=== PATIENT | male | born 1980 | race Caucasian/White ===

== ENCOUNTER 2016-11-22 11:26 | Emergency (ER) | payer BC, MEDICAID ==
--- NOTE | 2016-11-22 12:41 | ERNOTE ---
Abdominal HPI - General Chief Complaint: Rectal Bleeding Time Seen by Provider: 11/22/16 12:25 Source: patient Exam Limitations: no limitations - Immun/Allergies/Home Medications Immunizatons: IMMUNIZATION HX Immunizations Up to Date Yes Allergies/Adverse Reactions: Allergies oxycodone [From OxyContin] Allergy (Verified 11/22/16 11:42) Home Medications: HOME MEDICATIONS Insulin Glargine,Hum.rec.anlog [Lantus] 24 unit SQ HS 09/03/13 [Last Taken 10/11] HYDROcodone/ACETAMINOPHEN [Lortab 5-325 mg Tablet] 1 each PO Q6H PRN 09/30/14 [ Last Taken 10/12/16] Diazepam [Valium] 10 mg PO HS 11/22/16 [Last Taken Unknown] - History of Present Illness Narrative: Patient is here for rectal bleeding that started yesterday morning. He had two large bowel movements mixed with blood. This morning he had one large bloody bowel movement and lost control of some of it, no BM since, no abdominal pain, no rectal pain. He vomited once yesterday morning with the first bowel movement , has been tolerating fluids since. He has a history of opiod induce constipation. He has chronic back pain. When he lived in [place] the pain was controlled with smoking pot. Since coming back to [place] the beginning of the year he has been back on vicodin prescribed by his PCP Review of Systems - Review of Systems Constitutional: Present: chills. Absent: recent illness, fever ENT: Absent: nose congestion, sore throat Respiratory: Absent: shortness of breath, cough Cardiology: Absent: chest pain Gastrointestinal/Abdominal: Present: See HPI Genitourinary: Present: no symptoms reported Musculoskeletal: Present: back pain - chronic Neurological: Absent: headache, dizziness/light-headedness - Patient's Past Medical History Patient History - Medical: Diabetes Type 2 Insulin Dependent, GERD, Hypothyroidism Patient History - Cardiac/Respiratory: No pertinent hx Patient History - Cancer: No Hx of Cancer Patient History - Surgical Procedures: Amputation, Appendectomy, Colonoscopy, T & A Patient History - Other: None - Family History Grandfather-Paternal Family History - Medical: Grandfather-Maternal Family History - Medical: Diabetes Type 2 - Social History Living Situations: spouse Abuse History: No History of abuse Psych History: Hx of Depression Smoking Status: Former smoker Alcohol Use: occasionally Drug Use: marijuana - Immunizations Immunizations Up to Date: Yes Physical Exam - Physical Exam General Appearance: Present: wd/wn, alert, no apparent distress Ears, Nose, Throat: Present: normal pharynx Respiratory: Present: no respiratory distress, normal breath sounds, no accessory muscle use, lungs clear Cardiovascular/Chest: Present: regular rate, rhythm, no murmur Gastrointestinal/Abdominal: Present: normal bowel sounds, nontender, nondistended, soft, no organomegaly Rectal Exam: Present: nontender, normal rectal tone, normal prostate, other - anoscope: empty rectal vault, no blood, no stool, no tendernes, no hemorrhoids. Absent: blood-streaked stool Extremity Exam: Present: no edema Neurological Exam: Present: alert, oriented, normal mood/affect ED Progress - Results and Orders Patient's Lab Results:: I have reviewed the patient's lab results. - Vital Signs Patient's Vital Signs:: I have reviewed the patient's vital signs. Vital Signs: Vital Signs 11/22/16 11/22/16 11/22/16 11:36 11:56 11:57 Temperature 36.4 C L Pulse Rate 76 71 70 Respiratory 16 10 L Rate Blood Pressure 122/73 127/71 O2 Sat by Pulse 98 98 Oximetry - X-Ray X-Ray #1 X-Ray: abdomen - no acute Interpretation: Reviewed by me - Progress/Reassessment Chief Complaint: Rectal Bleeding Progress Note-Subjective: 11/22/16 13:42 patient comfortable, discussed results, no bleeding Departure - Departure Clinical Impression: GI bleeding Qualifiers: GI bleed type/associated pathology: anorectal hemorrhage Qualified Code(s): K62.5 - Hemorrhage of anus and rectum Disposition: Home self-care Condition: Good Instructions: Gastrointestinal Bleeding, [id number] Additional Instructions: as you have no bleeding currently you are safe to go home, call your doctor for follow up Referrals: Cheo Beltran MD [Primary Care Provider] -
[2016-11-22 12:57] LABS: Hematocrit 39.5 % (42.0-52.0); Hemoglobin 14.1 gm/dL (13.5-18.0); Mean Cell Volume 84.9 fl (78-100); Mean Corpuscular Hemoglobin 30.3 pg (27-31); Mean Corpuscular Hgb Conc 35.7 g/dl (32-36); Mean Platelet Volume 9.3 fl (6.0-9.5); Neutrophil # 6.8 K/mm3 (1.3-6.0); Neutrophil % 71.9 % (42-75.0); Platelet Count 205 K/mm3 (150-450); Red Blood Count 4.65 M/mm3 (4.7-6.0); Red Cell Distribution Width 11.9 % (11.5-14.0); White Blood Count 9.4 K/mm3 (4.0-10.5)
[2016-11-22 13:53] VITALS: BP 132/78
== END 2016-11-22 13:50 | disposition home or self-care (01) ==
LOC: ER 11:26
DX: K62.5 Hemorrhage of anus and rectum (principal); Z87.891 Personal history of nicotine dependence

== ENCOUNTER 2018-07-26 08:29 | Inpatient (IN) ==
[~2018-07-26 08:29] MED LIST: ceFAZolin SODIUM 1 GM VIAL IV PRN
[2018-07-26] MEDS ORDERED: MORPHINE SULFATE 4 MG/ML SYRG IV ONE (08:42)
--- NOTE | 2018-07-26 08:48 | ERNOTE ---
Trauma/Assault HPI - General Stated Complaint: fall Time Seen by Provider: 07/26/18 08:30 Source: patient Exam Limitations: no limitations - Immun/Allergies/Home Medications Immunizations: IMMUNIZATION HX Immunizations Up to Date Yes History of Influenza Vaccine No Hx Pneumococcal Vaccination No Allergies/Adverse Reactions: Allergies No Known Allergies Allergy (Unverified 07/26/18 11:38) Home Medications: HOME MEDICATIONS nabumetone 750 mg tablet 750 mg PO DAILY 04/02/18 [Last Taken Unknown] omega-3 fatty acids 1,000 mg capsule 1,000 mg PO DAILY 04/02/18 [Last Taken Unknown] Baclofen 10 mg PO HS 07/26/18 [Last Taken Unknown] Escitalopram Oxalate [Lexapro] 60 mg PO DAILY 07/26/18 [Last Taken Unknown] oxyCODONE HCL/ACETAMINOPHEN [Endocet 10-325 mg Tablet] 2 ea PO TID PRN 07/26/18 [Last Taken Unknown] - History of Present Illness Date (Duration): 07/26/18 Narrative: Patient was diagnosed with MS two years ago, his main symptom is a left foot drop. He was walking to the bathroom [employer] when he lost his balance and fell on his left side. He has severe pain in his left hip and was unable to get up. He might have hit his head but denies any loss of consciousness, has had some pain in his left elbow before, worse since falling. He is also a diabetic (diet controlled) Location Occurred: Reports: home Pain Location: Reports: upper extremity, lower extremity Method of Injury: Reports: fall Severity: moderate - rest, severe - movement Modifying Factors - (Improves): Reports: rest Modifying Factors - (Worsens): Reports: movement Loss of Consciousness: Reports: no loss of consciousness, remembers the event Associated Symptoms - Trauma: Denies: headache, confusion, abdominal pain, nausea Review of Systems - Review of Systems Constitutional: Absent: recent illness ENT: Absent: nose congestion, sore throat Respiratory: Absent: shortness of breath Cardiology: Absent: chest pain Gastrointestinal/Abdominal: Absent: nausea, abdominal pain Genitourinary: Present: no symptoms reported Musculoskeletal: Present: back pain - chronic, no new pain Neurological: Absent: headache Medical History (Last Reviewed 07/26/18 @ 08:47 by Swetha Lemus MD) Ankle pain, left B12 deficiency Depression Diabetes mellitus, type II Diabetic neuropathy Hiatal hernia Hypothyroidism Hypothyroidism Low back pain Multiple sclerosis Onychomycosis Phantom pain Surgical History: Surgical History (Last Reviewed 07/26/18 @ 08:47 by Swetha Lemus MD) Toe amputation status Onset Date: ~04/02/18 09/04/13, 01/2016 R 4th toe, left great toe partial Family History: Family History (Last Reviewed 07/26/18 @ 12:08 by Jerman Adhikari CRNA) Mother Alive and well Father Alive and well Social History: Preferred Language Latvian Do you have any gnosticist or No cultural preference? Smoking Status Never smoker Abuse History No History of abuse Psych History Hx of Depression Alcohol Use none Drug Use none,marijuana (Last Updated 04/03/18 @ 13:29 by Olena Ellis DPM) No Social History Section defined Detailed Trauma Exam Best Eye Response (Jose Alberto): (4) open spontaneously Best Verbal Response (Jose Alberto): (5) oriented Best Motor Response ([place]): (6) obeys commands [place] Total: 15 General Appearance: Present: alert, mild distress Head Injury: Present: normal inspection, no tenderness on palpate Neurological Exam: Present: alert, oriented x 4, no motor/sensory deficits Neck Exam: Present: non-tender, full range of motion, normal alignment, normal inspection Nexus Clearance: Present: Nexus criteria negative Eye Exam: Normal inspection: bilateral, PERRL: bilateral Chest/Respiratory Exam: Present: nml inspection, chest non-tender, breath sounds nml. Absent: rib tenderness Cardiovascular Exam: Present: regular rate, rhythm, no murmur, normal peripheral pulses Peripheral Pulses: Dorsalis-pedis (R): Normal, Dorsalis-pedis (L): Normal Back Exam: Present: normal inspection, no CVA tenderness, no vertebral tenderness Abdominal Exam: Present: soft, non-tender, no distention, normal bowel sounds Skin Exam: Present: normal color, warm/dry RU Extremity: Present: normal inspection, normal range of motion, non-tender, no edema FANY Extremity: Present: normal inspection, no edema, normal except - - mild tenderness over elbow, no deformity RL Extremity: Present: normal inspection, normal range of motion, non-tender, no edema LL Extremity: Present: normal inspection, other - eft leg shortened and externally rotated, pain on palpation of left hip, normal exam of remainder of leg, did not attempt ROM due to hip exam - C-Spine cleared by: Neg history & exam - T, L-Spine cleared by: Neg hx and exam Progress - Results and Orders Patient's Lab Results:: I have reviewed the patient's lab results. - Vital Signs Patient's Vital Signs:: I have reviewed the patient's vital signs. Vital Signs: Vital Signs 07/26/18 08:32 Temperature 36.8 C Pulse Rate 65 Respiratory Rate 17 Blood Pressure 132/69 O2 Sat by Pulse Oximetry 100 - EKG EKG #1 EKG: NSR, no ST T wave changes, other - no acute change EKG read: Interp. by me - X-Ray X-Ray #1 X-Ray: chest - no acute cardiovascular changes, rib irregularity (no clinical tenderness) Interpretation: Reviewed by me X-Ray #2 X-Ray: elbow - no bony injury Interpretation: Reviewed by me X-Ray #3 X-Ray: hip - Comminuted mildly angulated intertrochanteric/subtrochanteric fracture of the proximal left femur. Interpretation: Reviewed by me - Progress/Reassessment Chief Complaint: Fall Progress Note-Subjective: 07/26/18 09:[address] De La Cruz, keep patient NPO, planing on doing surgery later today admit to med 07/26/18 09:36 discussed diagnosis and plan with patient and family 07/26/18 09:37 discussed with sal Johnston to admit Departure Clinical Impression: Closed left hip fracture Qualifiers: Encounter type: initial encounter Qualified Code(s): S72.002A - Fracture of unspecified part of neck of left femur, initial encounter for closed fracture Diabetes Qualifiers: Diabetes mellitus type: type 2 Diabetes mellitus technician terminal and repeater insulin use: without technician terminal and repeater use Diabetes mellitus complication status: without complication Qualified Code(s): E11.9 - Type 2 diabetes mellitus without complications Chronic pain Qualifiers: Chronic pain type: other chronic pain Qualified Code(s): G89.29 - Other chronic pain - Departure Disposition: Still a patient Condition: Stable Critical Care Time - Critical Care Critical Time Spent:: No
[2018-07-26] MEDS ORDERED: HYDROmorphone HCL 1 MG/ML DISP.SYRIN IV ONE (09:36)
[2018-07-26 09:49] LABS: Hematocrit 39.6 % (42.0-52.0); Hemoglobin 13.4 gm/dL (13.5-18.0); Mean Cell Volume 88.2 fl (78-100); Mean Corpuscular Hemoglobin 29.8 pg (27-31); Mean Corpuscular Hgb Conc 33.8 g/dl (32-36); Mean Platelet Volume 9.7 fl (8-11.3); Neutrophil # 10.7 K/mm3 (1.3-6.0); Neutrophil % 86.2 % (42-75.0); Platelet Count 206 K/mm3 (150-450); Red Blood Count 4.49 M/mm3 (4.7-6.0); Red Cell Distribution Width 11.7 % (11.5-14.0); White Blood Count 12.4 K/mm3 (4.0-10.5)
[2018-07-26 09:58] LABS: Albumin * 3.6 gm/dl (3.4-5.0); Anion Gap 9.2 mmol/L (6.8-13.8); Bilirubin, Total 1.3 mg/dL (0.0-1.1); Ca. Corrected For Albumin 8.7 mg/dL (8.4-10.2); Calcium * 8.7 mg/dL (7.9-10.9); Carbon Dioxide 31.8 mmol/L (24-32.6); Total Protein 6.6 gm/dL (6.2-8.2)
[2018-07-26 10:08] LABS: Hemoglobin A1C 5.7 % (4.00-6.0)
[2018-07-26] MEDS ORDERED: ONDANSETRON HCL/PF 2 MG/ML VIAL IV PRN ×2 (10:20→20:56)
[2018-07-26] MEDS ORDERED: NORMAL SALINE 1,000 ML IV ONE (10:23)
--- NOTE | 2018-07-26 11:13 | HP ---
Chief Complaint - Chief Complaint Date of Service: 07/26/18 Time of Service: 11:13 Chief Complaint: hip fracture History of Present Illness: Patient with PMHx of MS suffered a ground level fall at home this morning, and sustained a left hip fracture. He gets twice yearly infusions for his MS, and is on chronic narcotics for MS related pain. He walks with a cane. He reports previous history of diabetes, but was 100 pounds larger at that time. Has had toe amputations due to his diabetes. Today's A1C was 5.7. He denies symptoms of active infection. No sinus pressure, sore throat, SOB, CP, cough, dysuria, or skin ulcers. Medical History (Last Reviewed 07/26/18 @ 10:43 by Cira Pickett RN) Ankle pain, left B12 deficiency Depression Diabetes mellitus, type II Diabetic neuropathy Hiatal hernia Hypothyroidism Hypothyroidism Low back pain Multiple sclerosis Onychomycosis Phantom pain Surgical History: Surgical History (Last Reviewed 07/26/18 @ 10:42 by Cira Pickett RN) Toe amputation status Onset Date: ~04/02/18 09/04/13, 01/2016 R 4th toe, left great toe partial Family History: Family History (Last Reviewed 07/26/18 @ 10:43 by Cira Pickett RN) Mother Alive and well Father Alive and well Social History: Preferred Language Thai Do you have any hinduism or No cultural preference? Smoking Status Never smoker Abuse History No History of abuse Psych History Hx of Depression Alcohol Use none Drug Use none,marijuana (Last Updated 04/03/18 @ 13:29 by Olena Ellis DPM) No Social History Section defined Review Of Systems (GEN) - Review of Systems Generalized/Overall Review: Absent: Fever Respiratory: Absent: Cough Cardiac: Absent: Chest Pain, Edema Abdominal: Absent: Vomiting, Diarrhea Genitourinary: Absent: Dysuria Skin: Absent: Lesions Immunizations: IMMUNIZATION HX Immunizations Up to Date Yes History of Influenza Vaccine No Hx Pneumococcal Vaccination No Allergies/Adverse Reactions: Allergies Allergy/AdvReac Type Severity Reaction Status Date / Time No Known Allergies Allergy Unverified 07/26/18 11:38 Home Medications: HOME MEDICATIONS nabumetone 750 mg tablet 750 mg PO DAILY 04/02/18 [Last Taken Unknown] omega-3 fatty acids 1,000 mg capsule 1,000 mg PO DAILY 04/02/18 [Last Taken Unknown] Baclofen 10 mg PO HS 07/26/18 [Last Taken Unknown] Escitalopram Oxalate [Lexapro] 60 mg PO DAILY 07/26/18 [Last Taken Unknown] oxyCODONE HCL/ACETAMINOPHEN [Endocet 10-325 mg Tablet] 2 ea PO TID PRN 07/26/18 [Last Taken Unknown] Exam - Exam Vital Signs: Vital Signs - Last Taken Temp 36.8 C 07/26/18 10:40 Pulse 66 07/26/18 10:40 Resp 15 07/26/18 10:40 BP 121/74 07/26/18 10:40 Pulse Ox 98 07/26/18 10:40 Constitutional: Present: Alert, Oriented x3, Cooperative, Well developed Respiratory: Present: lungs clear, normal breath sounds, no respiratory distress Cardiovascular/Chest: Present: regular rate, rhythm Abdomen: Present: soft, nontender Extremity: Present: other - left leg rotated laterally. Absent: lower extremity edema Eye contact: Present: cooperative Diagnostic Studies: Abnormal Lab Results 07/26/18 07/26/18 Range/Units 09:41 09:41 WBC 12.4 H (4.0-10.5) K/mm3 RBC 4.49 L (4.7-6.0) M/mm3 Hgb 13.4 L (13.5-18.0) gm/dL Hct 39.6 L (42.0-52.0) % Immature Gran # (Auto) 0.05 H (0.000-0.0310) K/mm3 Neutrophils % 86.2 H (42-75.0) % Lymphocytes % 8.0 L (20-51) % Neutrophils # 10.7 H (1.3-6.0) K/mm3 Lymphocytes # 0.99 L (1.5-3.5) k/mm3 Random Glucose 127 H (70-110) mg/dL Total Bilirubin 1.3 H (0.0-1.1) mg/dL Laboratory Results WBC 12.4 K/mm3 (4.0-10.5) H 07/26/18 09:41 RBC 4.49 M/mm3 (4.7-6.0) L 07/26/18 09:41 Hgb 13.4 gm/dL (13.5-18.0) L 07/26/18 09:41 Hct 39.6 % (42.0-52.0) L 07/26/18 09:41 MCV 88.2 fl (78-100) 07/26/18 09:41 MCH 29.8 pg (27-31) 07/26/18 09:41 MCHC 33.8 g/dl (32-36) 07/26/18 09:41 RDW 11.7 % (11.5-14.0) 07/26/18 09:41 Plt Count 206 K/mm3 (150-450) 07/26/18 09:41 MPV 9.7 fl (8-11.3) 07/26/18 09:41 Immature Gran % (Auto) 0.40 % (0.001-0.429) 07/26/18 09:41 Immature Gran # (Auto) 0.05 K/mm3 (0.000-0.0310) H 07/26/18 09:41 Neutrophils % 86.2 % (42-75.0) H 07/26/18 09:41 Lymphocytes % 8.0 % (20-51) L 07/26/18 09:41 Monocytes % 5.1 % (0.0-9) 07/26/18 09:41 Eosinophils % 0.0 % (0.0-3.0) 07/26/18 09:41 Basophils % 0.3 % (0.0-1.0) 07/26/18 09:41 Nucleated RBC % 0.0 k/mm3 (0-1) 07/26/18 09:41 Neutrophils # 10.7 K/mm3 (1.3-6.0) H 07/26/18 09:41 Lymphocytes # 0.99 k/mm3 (1.5-3.5) L 07/26/18 09:41 Monocytes # 0.6 k/mm3 (0.0-1.0) 07/26/18 09:41 Eosinophils # 0.0 k/mm3 (0.0-0.7) 07/26/18 09:41 Absolute Basophils 0.0 k/mm3 (0.0-0.1) 07/26/18 09:41 Sodium 139 mmol/L (132-142) 07/26/18 09:41 Plasma Sodium 139 mmol/L (130-142) 07/26/18 09:41 Potassium 4.0 mmol/L (3.4-4.6) 07/26/18 09:41 Chloride 102 mmol/L (97-106) 07/26/18 09:41 Carbon Dioxide 31.8 mmol/L (24-32.6) 07/26/18 09:41 Anion Gap 9.2 mmol/L (6.8-13.8) 07/26/18 09:41 BUN 16 mg/dL (6-23) 07/26/18 09:41 Creatinine 0.89 mg/dL (0.4-1.4) 07/26/18 09:41 Est GFR (Non-Af Amer) 101 mL/min (60-130) 07/26/18 09:41 BUN/Creatinine Ratio 18.0 (9.0-21.6) 07/26/18 09:41 Random Glucose 127 mg/dL (70-110) H 07/26/18 09:41 Mean Blood Glucose 104 mg/dL 07/26/18 09:49 Hemoglobin A1c 5.7 % (4.00-6.0) 07/26/18 09:49 Calcium 8.7 mg/dL (7.9-10.9) 07/26/18 09:41 Calcium Adj for Albumin 8.7 mg/dL (8.4-10.2) 07/26/18 09:41 Total Bilirubin 1.3 mg/dL (0.0-1.1) H 07/26/18 09:41 AST 17 U/L (0-48) 07/26/18 09:41 ALT 20 U/L (19-67) 07/26/18 09:41 Alkaline Phosphatase 90 U/L (50-170) 07/26/18 09:41 Total Protein 6.6 gm/dL (6.2-8.2) 07/26/18 09:41 Albumin 3.6 gm/dl (3.4-5.0) 07/26/18 09:41 Assessment/Plan - Assessment/Plan (1) Closed left hip fracture Assessment: Xray reads "Comminuted mildly angulated intertrochanteric/subtrochanteric fracture of the proximal left femur." He is prescribed vicodin for MS related pain and will defer pain management to his surgeon. Potential repair later today. He has no increased CV risk to undergo surgery, and he is low risk. No significant abnormalities on labs or his EKG, and no signs of infection on exam. OK to proceed. He denies significant steroid use history. Would consider checking a Dexa after DC to evaluate his bone density. Problem: Acute Qualifiers: Encounter type: initial encounter Qualified Code(s): S72.002A - Fracture of unspecified part of neck of left femur, initial encounter for closed fracture (2) Multiple sclerosis Assessment: He reports being due for his twice yearly infusion, and would recommend scheduling that after DC. Will need to monitor for MS flare, given his acute stress from his hip fracture. He reports having increased difficulty walking with his flares. If he were to have an acute flare, will need to contact his neurologist for treatment recommendations. Problem: Chronic (3) Chronic pain Assessment: He takes vicodin at baseline, so pain control may be difficult. Will attempt to resume this dose after his surgery, but likely will need increased narcotics. Problem: Chronic Qualifiers: Chronic pain type: other chronic pain Qualified Code(s): G89.29 - Other chronic pain
[2018-07-26] MEDS: HYDROmorphone HCL 1 MG/ML DISP.SYRIN IV PRN ×2 (11:48→18:26)
--- NOTE | 2018-07-26 12:10 | ANES ---
Anesthesia Pre Procedure Eval Vitals/Labs: Last Vital Signs Temp 37.1 C 07/26/18 10:42 Pulse 64 07/26/18 10:42 Resp 16 07/26/18 10:42 BP 129/69 07/26/18 10:42 Pulse Ox 99 07/26/18 10:42 Hemoglobin A1c 5.7 % (4.00-6.0) 07/26/18 09:49 HOME MEDICATIONS nabumetone 750 mg tablet 750 mg PO DAILY 04/02/18 [Last Taken Unknown] omega-3 fatty acids 1,000 mg capsule 1,000 mg PO DAILY 04/02/18 [Last Taken Unknown] Baclofen 10 mg PO HS 07/26/18 [Last Taken Unknown] Escitalopram Oxalate [Lexapro] 60 mg PO DAILY 07/26/18 [Last Taken Unknown] oxyCODONE HCL/ACETAMINOPHEN [Endocet 10-325 mg Tablet] 2 ea PO TID PRN 07/26/18 [Last Taken Unknown] Allergies/Adverse Reactions: Allergies Allergy/AdvReac Type Severity Reaction Status Date / Time No Known Allergies Allergy Unverified 07/26/18 11:38 - Planned Procedure Planned Procedure: Left Hip fracture Medication List Reviewed:: Yes Allergies Verified: Yes Medical History (Last Reviewed 07/26/18 @ 12:08 by Jerman Adhikari CRNA) Ankle pain, left B12 deficiency Depression Diabetes mellitus, type II Diabetic neuropathy Hiatal hernia Hypothyroidism Hypothyroidism Low back pain Multiple sclerosis Onychomycosis Phantom pain Surgical History (Last Reviewed 07/26/18 @ 12:08 by Jerman Adhikari CRNA) Toe amputation status Onset Date: ~04/02/18 09/04/13, 01/2016 R 4th toe, left great toe partial Family History (Last Reviewed 07/26/18 @ 12:08 by Jerman Adhikari CRNA) Mother Alive and well Father Alive and well - Family Anesthesia History Family History:: no untoward family reactions to anesthesia - Airway/Neck/Teeth Within Normal Limits:: Yes Denture Type: Partial lower Neck Exam: full range of motion Mallampatti Score: 1 Thyromental (T-M) distance: > 6 cm Mandibulo Hyoid distance: > 3 cm - Respiratory Respiratory Physical: lungs clear Sleep Apnea currently treated: No Sleep Apnea by current assessment: No - Cardiovascular Tolerate Activity: Good Heart Sounds: S1 & S2, Regular - Anesthesia Assessment and Plan ASA Class: PS, II Anesthesia Type Plan: General LMA - frequent marijuana use Planned difficult intubation/equipment available: No
--- NOTE | 2018-07-26 12:35 | CONS ---
- Reason for consultation (1) Closed left hip fracture Date of Service: 07/26/18 HPI - General Date of Service: 07/26/18 Narrative: Chris is a 38-year-old male with a history of multiple sclerosis and poorly controlled diabetes who fell from standing height today and sustained a displaced intertrochanteric fracture of his left femur. He was initially evaluated in the emergency department where plain films revealed the injury. He was then admitted to the floor under the medicine service and orthopedics was consulted for further evaluation and management of his hip fracture. Upon evaluation he complains only of left hip pain. He denies any other injuries. He denies hitting his head or any loss of consciousness. He states he has a history of chronic balance issues and has numerous falls because of his multiple sclerosis. - History of Present Illness Allergies/Adverse Reactions: Allergies No Known Allergies Allergy (Unverified 07/26/18 11:38) Home Medications: Home Medications Medication Instructions Recorded Last Taken nabumetone 750 mg tablet 750 mg PO DAILY 04/02/18 Unknown omega-3 fatty acids 1,000 mg 1,000 mg PO DAILY 04/02/18 Unknown capsule Baclofen 10 mg PO HS 07/26/18 Unknown Escitalopram Oxalate [Lexapro] 60 mg PO DAILY 07/26/18 Unknown oxyCODONE HCL/ACETAMINOPHEN 2 ea PO TID PRN 07/26/18 Unknown [Endocet 10-325 mg Tablet] Procedures Amputation of toe (10/01/14) Other excision, fusion and repair of toes (11/12/13) Other partial ostectomy, other bones (11/12/13) Revision of amputation stump (09/09/13) Medications - Medications Current Medications: Current Medications Hydromorphone HCl (Dilaudid) 1 mg IV Q4H PRN PRN Reason: Severe Pain (pain scale 7-10) Stop: 08/25/18 10:21 Last Admin: 07/26/18 11:48 Dose: 1 mg Documented by: Sodium Chloride (Sodium Chloride 0.9%) 1,000 mls @ 150 mls/hr IV .Q6H40M ONE Stop: 07/26/18 17:02 Last Admin: 07/26/18 10:50 Dose: 150 mls/hr Documented by: Review of Systems - Review of Systems Narrative: As per HPI, otherwise negative. Physical Examination - Exam Narrative: Gen: A&Ox3, NAD Resp: Breathing nonlabored on room air CV: Regular rate and rhythm MSK: LLE--> lower extremity shortened and externally rotated, pain with any attempted motion of the left lower extremity, left foot warm and well perfused with palpable DP and PT pulses, previous toe amputations noted Vital Signs: Vital Signs - Last Taken Temp 37.1 C 07/26/18 10:42 Pulse 64 07/26/18 10:42 Resp 16 07/26/18 10:42 BP 129/69 07/26/18 10:42 Pulse Ox 99 07/26/18 10:42 O2 Oxygen Delivery Method Room Air - Results and Findings: Narrative: 38-year-old male with multiple sclerosis and poorly controlled diabetes with displaced left intertrochanteric femur fracture. -Counseled the patient on treatment options today and given his age and fracture pattern, strongly recommended surgical fixation to allow him to quickly mobilize. I counseled him on the risks of surgery including, but not limited to, infection, bleeding, avascular necrosis, malunion/nonunion, persistent pain, stiffness, arthrosis, DVT/PE, and risks with anesthesia. After discussion, he wishes to proceed with surgery. -Informed consent obtained. -Patient nothing by mouth since this morning. -Plan for closed versus open reduction and short cephalo-medullary nailing this afternoon. -Continue medical comanagement by medicine team. Lab/Microbiology results last 24 hrs: Abnormal/Pending Laboratory Last 24 HRS 07/26/18 07/26/18 09:41 09:41 WBC 12.4 H RBC 4.49 L Hgb 13.4 L Hct 39.6 L Immature Gran # (Auto) 0.05 H Neutrophils % 86.2 H Lymphocytes % 8.0 L Neutrophils # 10.7 H Lymphocytes # 0.99 L Random Glucose 127 H Total Bilirubin 1.3 H - Assessments/Findings (1) Closed left hip fracture Problem: Acute Qualifiers: Encounter type: initial encounter Qualified Code(s): S72.002A - Fracture of unspecified part of neck of left femur, initial encounter for closed fracture
[2018-07-26] MEDS ORDERED: ceFAZolin SODIUM 2 GM in DEXTROSE 5 % IN WATER 50 ML IV PRN ×2 (13:10)
[2018-07-26] MEDS ORDERED: RINGER'S SOLUTION,LACTATED 1,000 ML IV ONE (13:42)
--- NOTE | 2018-07-26 14:14 | OR ---
Operative Report - Dictated Report Narrative: Date: 07/26/2018 Surgeon: Jeremy De La Cruz M.D. Admin Dir: Kd Alejandro PA-C Preoperative diagnosis: Left basicervical femoral neck fracture Postoperative diagnosis: Left basicervical femoral neck fracture Operations and procedures: 1. Closed reduction, cephalo-medullary fixation left basicervical femoral neck fracture 2. Intraoperative interpretation of radiographs Anesthesia: Gen. Specimens: None Estimated blood loss: 200 Milliliters Retained implants: [employer] Trigen InterTAN 130 degree size 11.5 mm by 18 centimeter nail with 105 millimeter lag screw and 100 millimeter compression screw, with distal locking screw Complications: None Indications for procedure: Dajuan is a 38-year-old male with multiple sclerosis and poorly controlled diabetes who injured the left leg after a fall from standing height at home. They were admitted to the hospital after being evaluated in the emergency department. Once the medical provider felt that they were stable for surgical treatment, the risks and benefits alternatives were discussed. The risks of , blood clots, bleeding, infection, nerve/tendon/blood vessel injury, malunion, nonunion, failure of implants, painful implants, arthrosis, and need for additional procedures were discussed. The extremity was marked and consent was obtained on the floor. Procedure: After marking the operative extremity on the floor, the patient was taken to the operating room. A timeout was performed. IV antibiotics consisting of 2 g of Ancef were administered. A spinal anesthetic was induced by anesthesia, and the patient was then placed onto a fracture table with a well-padded perineal post. The non-operative leg was placed in a well-padded well leg malcolm in lithotomy position with an SCD on the leg. The operative leg was placed in a well-padded traction boot. Longitudinal traction, internal rotation, flexion, and adduction were utilized in order to reduce the fracture. Preliminary images were attained utilizing C-arm in both the AP and lateral views. This confirmed that we had obtained adequate visualization of the fracture as well as reduction. Next the hip was then prepped and draped in a standard sterile fashion. Next, the guidewire was placed percutaneously proximal to the greater trochanter to margo a starting point at the tip of the greater trochanter centered on the lateral view. This was advanced down to the level below the lesser trochanter. A scalpel was utilized to dissect down to the greater trochanter in order to advance the soft tissue protector down to bone. The entry reamer was then advanced down the proximal femur to the level of the lesser trochanter. The above nail was then selected and impacted into place. The outrigger was utilized in order to confirm the appropriate depth of the nail. Using the alignment device on the outrigger, a kailyn incision was made over the lateral femur. Sharp dissection was carried through the iliotibial band down to the proximal femur. The guidewire was was placed into the femoral head in a center center position on AP and lateral views. A tip apex distance less than 25 mm combined was obtained. Once we felt that we had placed the guidewire in the appropriate position, it was measured. Next the compression screw entry drill was advanced through the lateral cortex. This was then drilled down to the appropriate depth for the compression screw, again confirming that we are within the confines the bone. The derotational bar was then placed and the lag screw was drilled to the appropriate depth. The lag screw was then secured in place ensuring that we were within the confines of the bone. The compression screw was then inserted allowing for compression while releasing the traction on the leg. Using C-arm this was visualized to allow for compression across the fracture site. Once it was felt we had adequately stabilized the intertrochanteric fracture, the distal interlocking screw was placed in a static position confirmed to be the appropriate length and within the nail on both AP and lateral views. The nail was secured allowing for controlled compression and the outrigger was removed. The wounds were then thoroughly irrigated. Final images were obtained. The hip was placed through range of motion and showed no crepitance. The deep fascia was closed with 0 Vicryl, the subcutaneous tissue with 3-0 Vicryl, and the skin was closed with domi. Sterile dressings of Xeroform, 4 x 4s, and tegaderm were applied. All sponge, sharp, and instrument counts were correct prior to closing the wounds. The patient was then awoken and transferred to the postanesthesia care unit in stable condition.
[2018-07-26] MEDS ORDERED: MAG HYDROX/ALUMINUM HYD/SIMETH 30 ML UDC PO PRN (14:16)
[2018-07-26] MEDS ORDERED: MAGNESIUM HYDROXIDE 30 ML UDC PO PRN (14:16)
[2018-07-26] MEDS ORDERED: ACETAMINOPHEN 500 MG TABLET PO PRN (14:16)
[2018-07-26] MEDS ORDERED: MORPHINE SULFATE 2 MG/ML DISP.SYRIN IV PRN (14:16)
[2018-07-26] MEDS ORDERED: oxyCODONE HCL/ACETAMINOPHEN 1 TAB TABLET PO PRN (14:16)
--- NOTE | 2018-07-26 14:29 | ANES ---
Post Anesthesia Discharge - Transfer of Care Transfer of Care handoff given to nurse: Yes - Discharge from PACU Discharge from PACU when meets criteria: Yes - Awake in PACU.
--- NOTE | 2018-07-26 14:52 | ANES ---
Post Anesthesia Assessment - Vital Signs Vitals: Last Vital Signs Temp 37.3 C 07/26/18 14:40 Pulse 87 07/26/18 14:40 Resp 18 07/26/18 14:40 BP 137/71 07/26/18 14:40 Pulse Ox 98 07/26/18 14:40 Airway Patency: Normal - Mental Status Level Of Consciousness: Awake, Alert, Appropriate - Pain Level Pain Score: 5 - N/V Assessment Nausea/Vomiting Presence: None Dehydration:: No
[2018-07-26] MEDS: NORMAL SALINE 1,000 ML IV PRN ×2 (15:05→22:48)
[2018-07-26] MEDS: oxyCODONE HCL/ACETAMINOPHEN 1 TAB TABLET PO PRN ×2 (16:41→20:45)
[2018-07-26] MEDS: ceFAZolin SODIUM 1 GM in DEXTROSE 5 % IN WATER 100 ML IV SCH ×2 (17:30)
[2018-07-26] MEDS ORDERED: ONDANSETRON HCL/PF 2 MG/ML VIAL IV ONE (20:54)
[2018-07-26] MEDS: BACLOFEN 10 MG TABLET PO SCH (21:11)
[2018-07-26] MEDS: SENNOSIDES/DOCUSATE SODIUM 1 TAB TABLET PO SCH (21:11)
[2018-07-27] MEDS: HYDROmorphone HCL 1 MG/ML DISP.SYRIN IV PRN ×3 (00:02→12:07)
[2018-07-27] MEDS: oxyCODONE HCL/ACETAMINOPHEN 1 TAB TABLET PO PRN ×5 (02:04→19:54)
[2018-07-27] MEDS: ceFAZolin SODIUM 1 GM in DEXTROSE 5 % IN WATER 100 ML IV SCH ×4 (02:10→09:44)
[2018-07-27 06:04] LABS: Hematocrit 30.8 % (42.0-52.0); Hemoglobin 10.6 gm/dL (13.5-18.0); Mean Corpuscular Hemoglobin 30.3 pg (27-31); Mean Corpuscular Hgb Conc 34.4 g/dl (32-36); Mean Platelet Volume 9.9 fl (8-11.3); Platelet Count 174 K/mm3 (150-450); Red Cell Distribution Width 11.9 % (11.5-14.0); White Blood Count 9.4 K/mm3 (4.0-10.5)
[2018-07-27 06:13] LABS: Anion Gap 9.4 mmol/L (6.8-13.8); Estimated Creat Clear 143.7; Potassium 3.4 mmol/L (3.4-4.6)
[2018-07-27] MEDS: ESCITALOPRAM OXALATE 10 MG TAB PO SCH (08:34)
--- NOTE | 2018-07-27 11:07 | PN ---
Subjective - Date and Time Seen Date: 07/27/18 Time: 10:53 Subjective Narrative: Patient is POD #1 left hip fracture repair. He had some nausea overnight, but was able to tolerate breakfast. He has not been up yet since his surgery. Has not yet had a bowel movement. He would prefer to use the dilaudid while he's here. Objective - Review of Systems Generalized/Overall Review: Denies: Fever Respiratory: Denies: Shortness of Breath Cardiac: Denies: Chest Pain, Edema Abdominal: Reports: Nausea. Denies: Diarrhea Genitourinary Symptoms: Reports: No Symptoms Reported Skin: Reports: No Symptoms Reported - Vitals Vitals: Last Vital Signs Temp 36.8 C 07/27/18 10:37 Pulse 75 07/27/18 10:37 Resp 12 07/27/18 10:37 BP 111/70 07/27/18 10:37 Pulse Ox 98 07/27/18 10:37 - Abnormal Lab Findings Abnormal Lab Findings: Abnormal Lab Results 07/27/18 07/27/18 Range/Units 06:02 06:02 RBC 3.50 L (4.7-6.0) M/mm3 Hgb 10.6 L (13.5-18.0) gm/dL Hct 30.8 L (42.0-52.0) % Random Glucose 130 H (70-110) mg/dL - Exam Constitutional: Present: Alert, Oriented x3, Cooperative, No distress, Young Respiratory: Present: normal breath sounds, no respiratory distress Cardiovascular/Chest: Present: regular rate, rhythm Abdomen: Present: Normal bowel sounds, soft, nontender Extremity: Present: other - dressings laterally over the hip incisions on the left. SCDs in place. Absent: lower extremity edema Eye contact: Present: cooperative Cauti Physician Documentation - Urinary Catheter Management Urethral (Lees) Date of Insertion: 07/26/18 Time of Insertion: 13:10 Date of Removal: 07/27/18 Time of Removal: 08:30 Assessment/Plan - Problems/Diagnosis (1) Closed left hip fracture Problem: Acute Qualifiers: Encounter type: initial encounter Qualified Code(s): S72.002A - Fracture of unspecified part of neck of left femur, initial encounter for closed fracture Narrative: POD #1 fracture repair. He has a history of MS with balance difficulties, and had a ground level fall resulting in the left hip fracture. He used 1 mg IV dilaudid overnight. Discussed the goals of transitioning to po meds for pain control as soon as he is able. PRN milk of magnesia and senna are ordered to avoid constipation. PT evaluation has been ordered. He'd prefer to go home after surgery, but there is a possibility he will require a short term stay at a facility for PT prior to going home. (2) Multiple sclerosis Problem: Chronic Narrative: Discussed his case with his neurologist yesterday, who does not anticipate an MS flare because he receives Acrevis infusions. However, if he were to flare, she believes he would have stroke-like symptoms, and recommends 1,000 mg solumedrol for at least 3 days. (3) Chronic pain Problem: Chronic Qualifiers: Chronic pain type: other chronic pain Qualified Code(s): G89.29 - Other chronic pain Narrative: He reports taking 2 tablets of 10-325 mg oxycodone/acetaminophen tid chronically, and will return to his home regimen as soon as he is able.
[2018-07-27] MEDS: ENOXAPARIN SODIUM 40 MG/0.4 ML SYRG SC SCH (13:53)
[2018-07-27] MEDS: HYDROmorphone HCL 2 MG TABLET PO PRN ×2 (17:56→22:52)
[2018-07-27] MEDS: SENNOSIDES/DOCUSATE SODIUM 1 TAB TABLET PO SCH (21:08)
[2018-07-27] MEDS: BACLOFEN 10 MG TABLET PO SCH (21:08)
[2018-07-28] MEDS: oxyCODONE HCL/ACETAMINOPHEN 1 TAB TABLET PO PRN ×5 (01:42→20:38)
[2018-07-28] MEDS: HYDROmorphone HCL 2 MG TABLET PO PRN (04:36)
[2018-07-28 06:11] LABS: Hematocrit 29.1 % (42.0-52.0); Hemoglobin 9.9 gm/dL (13.5-18.0); Mean Cell Volume 88.4 fl (78-100); Mean Corpuscular Hemoglobin 30.1 pg (27-31); Mean Platelet Volume 10.1 fl (8-11.3); Platelet Count 159 K/mm3 (150-450); Red Blood Count 3.29 M/mm3 (4.7-6.0); Red Cell Distribution Width 11.8 % (11.5-14.0)
[2018-07-28 06:22] LABS: Anion Gap 5.8 mmol/L (6.8-13.8); BUN/Creatinine Ratio 12.9 (9.0-21.6); Calcium * 8.5 mg/dL (7.9-10.9); Carbon Dioxide 28.7 mmol/L (24-32.6); Potassium 3.5 mmol/L (3.4-4.6)
[2018-07-28] MEDS: ESCITALOPRAM OXALATE 10 MG TAB PO SCH (08:32)
[2018-07-28] MEDS: ENOXAPARIN SODIUM 40 MG/0.4 ML SYRG SC SCH (13:43)
--- NOTE | 2018-07-28 14:07 | PN ---
Subjective - Date and Time Seen Date: 07/28/18 Time: 14:02 Subjective Narrative: Patient reports feeling well. He is able to walk with a walker to the bathroom. He has not yet had a bowel movement, but does not feel uncomfortable. He used 3 doses of Dilaudid overnight. Of note, he does not have prescription drug coverage. He will need long-acting pain medication and anticoagulation on DC. Objective - Review of Systems Generalized/Overall Review: Denies: Fever Respiratory: Denies: Cough, Shortness of Breath Cardiac: Denies: Chest Pain Abdominal: Denies: Nausea, Diarrhea Genitourinary Symptoms: Reports: No Symptoms Reported Musculoskeletal Complaints: Reports: Other - Left hip pain postop - Vitals Vitals: Last Vital Signs Temp 36.3 C 07/28/18 10:47 Pulse 89 07/28/18 10:47 Resp 14 07/28/18 10:47 BP 117/65 07/28/18 10:47 Pulse Ox 98 07/28/18 10:47 - Abnormal Lab Findings Abnormal Lab Findings: Abnormal Lab Results 07/28/18 07/28/18 Range/Units 05:30 05:30 RBC 3.29 L (4.7-6.0) M/mm3 Hgb 9.9 L (13.5-18.0) gm/dL Hct 29.1 L (42.0-52.0) % Anion Gap 5.8 L (6.8-13.8) mmol/L Est GFR (Non-Af Amer) 133 H (60-130) mL/min Random Glucose 145 H (70-110) mg/dL - Exam Constitutional: Present: Alert, Oriented x3, Cooperative, No distress Respiratory: Present: normal breath sounds, no respiratory distress Cardiovascular/Chest: Present: regular rate, rhythm Extremity: Absent: lower extremity edema Eye contact: Present: cooperative Cauti Physician Documentation - Urinary Catheter Management Urethral (Lees) Date of Insertion: 07/26/18 Time of Insertion: 13:10 Date of Removal: 07/27/18 Time of Removal: 08:30 Assessment/Plan - Problems/Diagnosis (1) Closed left hip fracture Problem: Acute Qualifiers: Encounter type: initial encounter Qualified Code(s): S72.002A - Fracture of unspecified part of neck of left femur, initial encounter for closed fracture Narrative: Postop day 2 surgical repair of left hip fracture after ground-level fall. He is able to ambulate with a walker, and will be able to go home after discharge. IV Dilaudid DC'd overnight, and will change from p.o. Dilaudid to p.o. OxyContin. We will keep him overnight to ensure that his pain is controlled with OxyContin and home dose of Percocet. He will also need 2 weeks of Coumadin or Lovenox for anticoagulation, followed by 6 weeks of 325 mg aspirin. He does not have prescription drug coverage. 2 weeks of Coumadin would cost him $60. He is to keep his wounds dry until his follow-up appointment [address] De La Cruz. Change dressings as needed with 4 x 4 gauze and tape or Tegaderm (2) Multiple sclerosis Problem: Chronic Narrative: He receives Acrevis infusions every 6 months. He has chronic pain and left foot drop due to his MS. He has multiple forms of equipment to help him get around his house. (3) Chronic pain Problem: Chronic Qualifiers: Chronic pain type: other chronic pain Qualified Code(s): G89.29 - Other chronic pain
[2018-07-28] MEDS: SENNOSIDES/DOCUSATE SODIUM 1 TAB TABLET PO SCH (20:39)
[2018-07-28] MEDS: BACLOFEN 10 MG TABLET PO SCH (20:39)
[2018-07-29] MEDS: oxyCODONE HCL/ACETAMINOPHEN 1 TAB TABLET PO PRN ×3 (03:48→12:52)
--- NOTE | 2018-07-29 08:58 | PN ---
Subjective - Date and Time Seen Date: 07/29/18 Time: 08:00 Subjective Narrative: Patient states he had no acute events over night. His pain is well controlled at this time. He is tolerating p.o. diet. He notes he previously had diabetes and had lost over 100 pounds that has helped him no longer require medications. He states his hip is minimally painful, he has been up and walked to the bathroom. He notes he has resources at home to ambulate as well as aid from family. He states he still has moderate pain with weightbearing of his left hip. Objective - Vitals Vitals: Last Vital Signs Temp 36.9 C 07/29/18 06:51 Pulse 77 07/29/18 06:51 Resp 18 07/29/18 06:51 BP 118/69 07/29/18 06:51 Pulse Ox 97 07/29/18 06:51 - Exam Constitutional: Present: Alert, Cooperative, No distress Extremity: Present: other - LLE--> bandages clean, dry, intact, sensation intact light touch, distal pulses present, significant vascular changes distally, multiple toe amputations, mild tenderness diffusely around his left hip Eye contact: Present: cooperative Cauti Physician Documentation - Urinary Catheter Management Urethral (Lees) Date of Insertion: 07/26/18 Time of Insertion: 13:10 Date of Removal: 07/27/18 Time of Removal: 08:30 Assessment/Plan Plan Narrative: - 38 y/o male postop day #3 status post left closed reduction with cephalo- medullary nailing of basilar neck femur fracture -Weightbearing as tolerated, assistance as needed, use of assistive devices as needed -PT/OT progress as tolerated -P.o. diet as tolerated -P.o. pain medication as needed -Dressings, can be changed every 3 days or if any significant drainage, if any drainage or erythema about the wound site during the dressing change please call orthopedic office, dressings can be changed with sterile gauze and tape -VTE prophylaxis Lovenox for 2 weeks followed by 325 mg aspirin daily for 6 weeks -Follow-up in orthopedic office at 2 weeks postop -Disposition to discharge home once all goals are met, patient is stable, no acute concerns -Chronic medical conditions recommendations per medicine team - Problems/Diagnosis (1) Closed left hip fracture Problem: Acute Qualifiers: Encounter type: initial encounter Qualified Code(s): S72.002A - Fracture of unspecified part of neck of left femur, initial encounter for closed fracture
[2018-07-29] MEDS: ESCITALOPRAM OXALATE 10 MG TAB PO SCH (10:35)
--- NOTE | 2018-07-29 12:31 | DS ---
(1) Closed left hip fracture Problem: Acute Qualifiers: Encounter type: initial encounter Qualified Code(s): S72.002A - Fracture of unspecified part of neck of left femur, initial encounter for closed fracture (2) Multiple sclerosis Problem: Chronic (3) Chronic pain Problem: Chronic Qualifiers: Chronic pain type: other chronic pain Qualified Code(s): G89.29 - Other chronic pain Description of Stay: Patient with PMHx of MS suffered a ground level fall at home on 07/26, and sustained a left hip fracture. He gets twice yearly infusions for his MS, and is on chronic narcotics for MS related pain. He walks with a cane. No symptoms of active infection. He underwent closed reduction, cephalo-medullary fixation of a left basicervical femoral neck fracture. He recovered well, and his pain was controlled with oral medications. His case was discussed with his neurologist, who felt like his previous infusions should prevent MS flares. He reports previous history of diabetes, but was 100 pounds larger at that time. Has had toe amputations due to his diabetes. Admission A1C was 5.7. He does not have prescription drug coverage. Will send two weeks of coumadin and MS contin to [facility]. Per ortho note today, post op instructions include: Change dressings every 3 days or if any significant drainage, if any drainage or erythema about the wound site during the dressing change please call orthopedic office, dressings can be changed with sterile gauze and tape. VTE prophylaxis Lovenox for 2 weeks followed by 325 mg aspirin daily for 6 weeks. Follow-up with Dr. De La Cruz at 2 weeks postop. Procedures Performed: see notes below - Closed reduction, cephalo-medullary fixation left basicervical femoral neck fracture Results and Findings: Lab Pending Results 07/26/18 09:41: WBC 12.4 H, RBC 4.49 L, Hgb 13.4 L, Hct 39.6 L, MCV 88.2, MCH 29.8, MCHC 33.8, RDW 11.7, Plt Count 206, MPV 9.7, Immature Gran % (Auto) 0.40, Immature Gran # (Auto) 0.05 H, Neutrophils % 86.2 H, Lymphocytes % 8.0 L, Monocytes % 5.1, Eosinophils % 0.0, Basophils % 0.3, Nucleated RBC % 0.0, Neutrophils # 10.7 H, Lymphocytes # 0.99 L, Monocytes # 0.6, Eosinophils # 0.0, Absolute Basophils 0.0 07/26/18 09:41: Sodium 139, Plasma Sodium 139, Potassium 4.0, Chloride 102, Carbon Dioxide 31.8, Anion Gap 9.2, BUN 16, Creatinine 0.89, Est GFR (Non-Af Amer) 101, BUN/Creatinine Ratio 18.0, Random Glucose 127 H, Calcium 8.7, Calcium Adj for Albumin 8.7, Total Bilirubin 1.3 H, AST 17, ALT 20, Alkaline Phosphatase 90, Total Protein 6.6, Albumin 3.6 07/26/18 09:49: Mean Blood Glucose 104, Hemoglobin A1c 5.7 07/27/18 06:02: WBC 9.4 D, RBC 3.50 L, Hgb 10.6 L, Hct 30.8 L, MCV 88.0, MCH 30.3, MCHC 34.4, RDW 11.9, Plt Count 174, MPV 9.9 07/27/18 06:02: Sodium 138, Plasma Sodium 138, Potassium 3.4, Chloride 103, Carbon Dioxide 29.0, Anion Gap 9.4, BUN 9, Creatinine 0.75, Est GFR (Non-Af Amer) 123 D, BUN/Creatinine Ratio 12.0, Random Glucose 130 H, Calcium 8.0 07/28/18 05:30: WBC 8.0, RBC 3.29 L, Hgb 9.9 L, Hct 29.1 L, MCV 88.4, MCH 30.1, MCHC 34.0, RDW 11.8, Plt Count 159, MPV 10.1 07/28/18 05:30: Sodium 132, Plasma Sodium 133, Potassium 3.5, Chloride 101, Carbon Dioxide 28.7, Anion Gap 5.8 L, BUN 9, Creatinine 0.70, Est GFR (Non-Af Amer) 133 H, BUN/Creatinine Ratio 12.9, Random Glucose 145 H, Calcium 8.5 Discharge Location: Home Disposition: Home self-care Condition: Stable Discharge Activity: Weight bearing - as tolerated Discharge Diet: General/regular food Referrals: Micah Wolfe DO [Primary Care Provider] - Prescriptions (Any new or edited meds): Enoxaparin Sodium [Lovenox] 40 mg SC Q24H #14 disp.syrin Morphine Sulfate [Ms Contin] 15 mg PO BID #28 tablet.sa Complete Home Medications List: Complete Home Medication List: nabumetone 750 mg tablet 750 mg PO DAILY 04/02/18 omega-3 fatty acids 1,000 mg capsule 1,000 mg PO DAILY 04/02/18 Baclofen 10 mg PO HS 07/26/18 Escitalopram Oxalate [Lexapro] 60 mg PO DAILY 07/26/18 oxyCODONE HCL/ACETAMINOPHEN [Endocet 10-325 mg Tablet] 2 ea PO TID PRN 07/26/18 Enoxaparin Sodium [Lovenox] 40 mg SC Q24H #14 disp.syrin 07/29/18 Morphine Sulfate [Ms Contin] 15 mg PO BID #28 tablet.sa 07/29/18
[2018-07-29] MEDS: ENOXAPARIN SODIUM 40 MG/0.4 ML SYRG SC SCH (12:54)
[2018-07-29 15:03] VITALS: BP 122/68
== END 2018-07-29 14:10 | disposition home or self-care (01) | DRG 482 ==
LOC: ER 08:29 → MS 09:52
PROVIDERS: ADMIT Family Medicine; ATTEND Family Medicine
CPT/HCPCS: 36415; 71010; 71045; 73080; 73502; 76000; 80048; 80053; 83036; 85025; 85027; 87081; 90686; 93005; 96374; 97110; 97116; 97163; 97166; 97530; 99285; J2405